=== PATIENT | female | born 2005 | race Caucasian/White ===

== ENCOUNTER 2025-09-02 11:40 | Emergency (ER) | payer MEDICAID, OTHER, SELFPAY ==
[2025-09-02 11:52] VITALS: BP 135/72; PULSE 83; RESP 14; TEMP 36.7; O2SAT 100; BMI 32.3
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
[2025-09-02 14:54] LABS: Urine N gonorrhoeae NOT DETECTED
[2025-09-02 15:01] LABS: Urine Chlamydia NOT DETECTED
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
[2025-09-02 16:24] VITALS: BP 134/72; PULSE 81; RESP 16; O2SAT 99
== END 2025-09-02 16:14 | disposition home or self-care (01) ==
PROVIDERS: Emergency Provider Physician Assistant
DX: T74.21XA Adult sexual abuse, confirmed, initial encounter (principal); Z69.11 Encounter for mental health services for victim of spousal or partner abuse
CPT/HCPCS: 81003; 81025; 87491; 87591; 99282